=== PATIENT | male | born 1950 | race Caucasian/White ===

== ENCOUNTER → 2016-11-18 | Outpatient (CLI) | payer OTHER, MEDICARE | LOC: SBRMNEURO 20:00 | PROVIDERS: ATTEND Psychiatry & Neurology Sleep Medicine | DX: G47.33 Obstructive sleep apnea (adult) (pediatric) (principal) ==

== ENCOUNTER 2018-04-06 09:15 | Inpatient (IN) | payer OTHER, MEDICARE ==
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
[2018-04-06 10:14] LABS: PLATELET COUNT 230 10^3/uL (150-400)
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
--- NOTE | 2018-04-06 16:49 | ASMTTCLDSP ---
TLC Discharge Disposition Disposition: Answers: Admit Disposition Notes: Notes: In consultation with [facility] ED physician, Conrad Vazquez MD and on-call psychiatrist, Agapito Gustafson MD, both concurred that pt appears to meet 27-65 criteria requiring psychiatric hospitalization as the patient appears to be an imminent risk of harm to others due to a mental illness condition. The patient was given the 3N prohibited belongings list while in the ed. Was patient given the Answers: Yes Inpatient Behavioral Health Prohibited Belongings List while in the ED? For inpatient Agapito Gustafson MD admission, the following psychiatrist agreed to accept patient for admission to Behavioral Health ([facility]): Type of Hold: Answers: M1/72-hour Hold Hold initiated by: Answers: ED Physician Date Signed: 04/06/2018 04:48 PM Electronically Signed By:Marily Sanchez
[2018-04-06] MEDS ORDERED: ACETAMINOPHEN 325 MG TAB PO PRN (19:11)
[2018-04-06] MEDS ORDERED: MAG HYDROX/AL HYDROX/SIMETH 30 ML UDCUP PO PRN (19:11)
[2018-04-06] MEDS ORDERED: MAGNESIUM HYDROXIDE 30 ML UDCUP PO PRN (19:11)
[2018-04-06] MEDS: ZOLPIDEM TARTRATE 5 MG TAB PO SCH (20:33)
[2018-04-06] MEDS: PRAMIPEXOLE 0.25 MG TAB PO SCH (20:33)
[2018-04-06] MEDS: PREGABALIN 75 MG CAP PO SCH (20:33)
[2018-04-06] MEDS: Suvorexant [Belsomra] 15 MG PO SCH (21:18)
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
[2018-04-07] MEDS: PRAMIPEXOLE 0.25 MG TAB PO SCH ×2 (17:47→20:08)
[2018-04-07] MEDS: PREGABALIN 75 MG CAP PO SCH (20:08)
[2018-04-07] MEDS: ZOLPIDEM TARTRATE 5 MG TAB PO SCH (20:09)
[2018-04-07] MEDS: Suvorexant [Belsomra] 15 MG PO SCH (20:10)
[2018-04-08 06:51] VITALS: BP 102/75
--- NOTE | 2018-04-08 12:05 | ASMTBHDC ---
Notes Note: Notes: CC speaks to Dr. Neha Velazquez at [phone]; she explains that "I have been having the role of finding him some out patient providers, etc. I have a scheduled appointment for him with Dr. Rosalind Baum on Wednesday at 5:45pm." [place] noted, he needs DBT treatment but he does identify as having any mental health issues. Working with Neha regarding out-ptaient follow up care due to client discharging tomorrow. Date Signed: 04/08/2018 12:04 PM Electronically Signed By:Omari Ramirez
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
[2018-04-08] MEDS ORDERED: VENLAFAXINE XR 37.5 MG CAP PO SCH (12:15)
--- NOTE | 2018-04-08 12:36 | SOAPPROG ---
SOAP Progress Note Assessment/Plan: Assessment: Major depressive disorder, severe. Sad and helpless (see subjective/objective note). Patient is not safe to discharge at this time as patient continues to exhibit and express signs of depression. Patient requires continued inpatient care because of current depression, and to assess toleration of Effexor XR 37.5 mg po QD trial that will be started today. More time is needed to observe patient for safety and to plan for a safe discharge. Plan: Review psychotropic medication treatment informed consent and recommendations. After reviewing options, risk and benefits, patient agrees to continue medications with the following changes. Medication changes include start trial of Effexor XR 37.5 mg po QD. No other medication changes at this time as more time is needed to determine ongoing tolerability and efficacy. Plan is to continue to observe patient for response and side effects from medications, and ongoing monitoring and evaluation. Next steps are for patient to meet with health care technician to plan a safe discharge plan and establish outpatient services for ongoing treatment. Consider discharge on Wednesday if patient is in stable condition, safe, and has a safe discharge plan. PSYCHOTROPIC MEDICATION TREATMENT INFORMED CONSENT and RECOMMENDATIONS: Review nature of condition, diagnosis, and prognosis. Review nature and purpose of psychotropic medication treatment. Review type of psychotropic medications being ordered. Review risk and benefits of psychotropic medication treatment. Review probable length of time patient will need to take medications. Review risk and benefits of not undergoing psychotropic medication treatment. Review alternative treatments to psychotropic medications. Review psychotropic medications contraindications, drug-drug interactions, side effects, and importance of reporting any side effects to a psychiatric provider or nurse during inpatient hospitalization, and upon discharge to patients psychiatric outpatient provider, primary care provider, or other health child care giver. Review importance of asking a nurse, psychiatric provider, or primary care provider any questions or problems concerning the psychotropic medications. Verify patient understands the information that has been provided, and understands, accepts, and agrees to psychotropic medications. Review patients safety plan and importance of patient to report to staff while hospitalized if patient is ever a danger to self/others, or unable to care for self, and upon discharge, the importance for patient to contact [facility] or [facility], or go to the nearest emergency room, if patient is ever a danger to self/others, or unable to care for self. Recommend that upon discharge patient establish medication management treatment with a psychiatric provider, establishes routine therapy appointments, and follow-up with primary care provider. Verify patient understands and agrees to these recommendations. 04/08/18 12:41 Subjective: Following up with patient for evaluation of depression and safety. Patient reports, "Feel better since being here." Patient expresses the following psychiatric symptoms sadness, helpless regarding relationship with his daughter. Patient requests to discuss options for antidepressant medications. Objective: Vital Signs Temp Pulse Resp BP Pulse Ox 36.4 C 91 16 102/75 94 04/08/18 06:00 04/08/18 06:00 04/08/18 06:00 04/08/18 06:00 04/08/18 06:00 NURSING REPORT: Consulted with nursing for update on patients progress in treatment. Nurses report patient is engaged in treatment, is attending groups, slept 7 hours, expresses the following psychiatric symptoms: sad, exhibits the following psychiatric symptoms: moderate depression, is eating all meals, is taking medications as prescribed with no report of side effects, and denies SI/ HI. PRINCIPAL EMBEDDED SOFTWARE ENGINEER UPDATE: window caser provided with patients OP psychologist phone number. OP psychologist has asked to be involved in patients discharge planning for outpatient services. PHONE CALL: with patients OP psychologist: this EYELET ROW MARKER spoke to patients OP psychologist, Neha Ramires, this morning from [id number]. Neha stated she doesn' t have the specific person's name that patient made homicidal threats about prior to his admission that led to him being placed on a M1 hold; therefore, she plans to follow-up with Domo ESCALANTE to make a report. UPDATE: Patient agreed to a trial of Effexor XR 37.5 mg po QD. Patient stated he has tried Prozac and Zoloft in the past. The patient is a well-nourished male looking stated than chronological age. Attire is appropriate and dress is casual. Grooming status is appropriate. Ambulation is independent. Gait is normal/abnormal and coordinated. Posture is normal. Eye contact is appropriate. Motor activity is appropriate and coordinated. Attitude is cooperative and friendly. Patient appears attentive and relates well to this interviewer. Language production is spontaneous. R/R/V normal. Patient reports mood as good with congruent affect. Patients thought process is linear and logical, with no loose associations, tangential thought, thought blocking, concrete thinking, or any other signs of formal thought disorder. Patient does not report suicidal/homicidal thoughts, ideas, or plans. Patient has denied homicidal ideation, plans, or intent since since admission to both this EYELET ROW MARKER and other treatment team members. Patient denies auditory, visual hallucinations. Patient denies delusions. Patient does not appear to be attending to internal stimuli. Patients attention and concentration are adequate. Patient is oriented to person, place, time, and situation. Patients insight is adequate. Patients judgment is adequate. No evidence of gross cognitive dysfunction at any point during the interview. No evidence of apparent dysfunction in recent or remote memory. Patient reports taking medications as prescribed. Patient does not report undesirable side effects from the medications. Patient slept 7 hours. Patient reports appetite as good, and reports eating all meals. - Time Spent With Patient Time Spent With Patient: 25 minutes, met with patient individually. - Pending Discharge Pending Discharge Within 24 Hours: Yes Pending Discharge Within 48 Hours: No Pending Discharge Date: 04/09/18 Pending Discharge Time: 11:00 ICD10 Worksheet Patient Problems: Problems Problem Status Onset Homicidal ideation Acute
--- NOTE | 2018-04-08 14:03 | ASMTBHDC ---
Notes Note: Notes: CC speaks to current [place] and client about starting out-patient services, etc. Client endorses that he is waiting to participate in INDIVIDUAL counseling for himself, etc. Follow up appts are made and listed below: Follow up with: Dr. Neha Velazquez [address] [facility] [address] [place] [address] LAST SESSION scheduled for WednesdayApril 11 (04/11/18) at 8:45am Susannah Massey PsyD [address] [place] [address] Intake Appt: WednesdayApril 11 (04/11/18) at 5:45pm Additionally, client can follow up with PCP, later if medication is added as part of his mental health treatment plan. Date Signed: 04/08/2018 02:02 PM Electronically Signed By:Omari Ramirez
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
== END 2018-04-08 16:07 | disposition home or self-care (01) | DRG 885 ==
LOC: BBEH 18:20
PROVIDERS: ADMIT Psychiatry & Neurology Psychiatry; ATTEND Psychiatry & Neurology Psychiatry
DX: F32.2 Major depressive disorder, single episode, severe without psychotic features (principal); G47.00 Insomnia, unspecified; G25.81 Restless legs syndrome; E78.5 Hyperlipidemia, unspecified; Z96.21 Cochlear implant status; Z96.641 Presence of right artificial hip joint
CPT/HCPCS: 80305; 82607-90; G0480